=== PATIENT | female | born 1985 | race African-American/Black ===

== ENCOUNTER 2021-07-19 21:43 | Inpatient (IN) | payer OTHER ==
[~2021-07-19] VITALS: Ht 167.6 cm; Wt 93.6 kg
[2021-07-19 22:55] LABS: BASOPHIL 0.1 % (0-2); EOSINOPHIL 0 % (0-5); HCT 35.9 % (37.0-47.0); HGB 11.4 g/dl (12.5-16.0); LYMPHOCYTE 8.1 % (15-48); MCH 24.9 pg (25.0-31.0); MCHC 31.8 g/dL (32.0-36.0); MCV 78.6 fL (78.0-100.0); MONOCYTE 5.8 % (0-12); MPV 10.5 fL (6.0-9.5); NRBC 0; PLT 181 K/uL (150-400); RBC 4.57 M/uL (4.20-5.40); RDW 15.3 % (11.5-14.0); WBC 8.6 K/uL (4.0-10.5)
[2021-07-19 22:56] LABS: NEUTROPHIL 85.5 % (41-80)
[2021-07-19 23:28] LABS: ALBUMIN 3.2 g/dL (3.4-5.0); BILIRUBIN - TOTAL 0.2 mg/dL (0.2-1.0); C-REACTIVE PROTEIN 9.8 mg/dL (<=0.90); CREATININE 0.92 mg/dL (0.51-0.95); GLOBULIN (CALCULATION) 4.6 g/dL; POTASSIUM 4.1 mmol/L (3.5-5.1); TOTAL PROTEIN 7.8 g/dL (6.4-8.2)
[2021-07-20] MEDS ORDERED: PREDNISONE20 MG PO (05:32)
[2021-07-20] MEDS ORDERED: D3-501250 MCG PO (05:34)
[2021-07-20] MEDS ORDERED: PROAIR HFA8.5 GM PO (05:36)
[2021-07-21 08:47] LABS: BASOPHIL 0.2 % (0-2); EOSINOPHIL 0 % (0-5); HCT 38.6 % (37.0-47.0); HGB 12.3 g/dl (12.5-16.0); MCH 25.2 pg (25.0-31.0); MCHC 31.9 g/dL (32.0-36.0); MCV 78.9 fL (78.0-100.0); MONOCYTE 7.3 % (0-12); NEUTROPHIL 80.6 % (41-80); NRBC 0; PLT 239 K/uL (150-400); RBC 4.89 M/uL (4.20-5.40); RDW 15.4 % (11.5-14.0); WBC 10.5 K/uL (4.0-10.5)
[2021-07-21 08:50] LABS: LYMPHOCYTE 10.6 % (15-48)
[2021-07-21 09:12] LABS: C-REACTIVE PROTEIN 6.8 mg/dL (<=0.90); CREATININE 0.75 mg/dL (0.51-0.95)
[2021-07-23 06:26] LABS: BASOPHIL 0.2 % (0-2); EOSINOPHIL 0 % (0-5); HCT 36.2 % (37.0-47.0); HGB 11.3 g/dl (12.5-16.0); MCH 24.8 pg (25.0-31.0); MCHC 31.2 g/dL (32.0-36.0); MCV 79.4 fL (78.0-100.0); MONOCYTE 8.3 % (0-12); MPV 10.3 fL (6.0-9.5); NRBC 0; PLT 311 K/uL (150-400); RBC 4.56 M/uL (4.20-5.40); WBC 9.7 K/uL (4.0-10.5)
[2021-07-23 07:04] LABS: ALBUMIN 2.9 g/dL (3.4-5.0); BILIRUBIN - TOTAL 0.4 mg/dL (0.2-1.0); BUN/CREAT RATIO (CALC) 22.1 RATIO; CREATININE 0.68 mg/dL (0.51-0.95); GLOBULIN (CALCULATION) 4.3 g/dL; POTASSIUM 4.1 mmol/L (3.5-5.1); TOTAL PROTEIN 7.2 g/dL (6.4-8.2)
[2021-07-24 06:25] LABS: BASOPHIL 0.6 % (0-2); EOSINOPHIL 0 % (0-5); HCT 38.7 % (37.0-47.0); LYMPHOCYTE 15.6 % (15-48); MCH 24.8 pg (25.0-31.0); MCV 80.1 fL (78.0-100.0); MONOCYTE 8.1 % (0-12); MPV 10.1 fL (6.0-9.5); NEUTROPHIL 69.4 % (41-80); NRBC 0; PLT 351 K/uL (150-400); RBC 4.83 M/uL (4.20-5.40); RDW 14.8 % (11.5-14.0); WBC 9.6 K/uL (4.0-10.5)
[2021-07-24 06:35] LABS: ALBUMIN 3.2 g/dL (3.4-5.0); BILIRUBIN - TOTAL 0.3 mg/dL (0.2-1.0); BUN/CREAT RATIO (CALC) 19.4 RATIO; CREATININE 0.72 mg/dL (0.51-0.95); GLOBULIN (CALCULATION) 4.3 g/dL; POTASSIUM 3.9 mmol/L (3.5-5.1); TOTAL PROTEIN 7.5 g/dL (6.4-8.2)
[2021-07-24] MEDS ORDERED: DEXAMETHASONE 2M2 MG PO (13:17)
--- NOTE | 2021-07-24 13:51 | NUR ---
07/24/21 Ms. Shah did not require 02 at discharge.
== END 2021-07-24 15:40 | disposition home or self-care (01) | DRG 177 ==
LOC: FER 21:43 → FMS 07-20 04:13
PROVIDERS: Emergency Medicine Emergency Medical Services; Family Medicine; ADMIT Allergy & Immunology Allergy
PROC: XW033E5 Introduction of Remdesivir Anti-infective into Peripheral Vein, Percutaneous Approach, New Technology Group 5 (ICD-10-PCS; principal; 2021-07-20)
PROC: 8E0ZXY6 Isolation (ICD-10-PCS; 2021-07-20)
DX: U07.1 COVID-19 (principal); J12.82 Pneumonia due to coronavirus disease 2019; J96.01 Acute respiratory failure with hypoxia; J45.909 Unspecified asthma, uncomplicated; Z88.0 Allergy status to penicillin; Z80.0 Family history of malignant neoplasm of digestive organs; Z90.89 Acquired absence of other organs
CPT/HCPCS: 36415; 36600; 71275; 80048; 80053; 82728; 82803; 83735; 85025; 85379; 86140; 93005; 94010; 94640; 94664; 94667; 94668; C9399; J0696; J1100; J1650; J2405; J7050; Q9967; U0002